=== PATIENT | female | born 1965 | race Hispanic/Latino ===

== ENCOUNTER → 2018-07-13 | Outpatient (CLI) | payer OTHER ==
[~2018-07-13] MED LIST: LISINOPRIL-HCT1 EAC2 PO
--- NOTE | 2018-07-13 09:32 | Diagnostic Imaging Report ---
Left knee MRI without contrast. History: Knee pain. Internal arrangement. Decreased range of motion. Pain worse with walking. Comparison: None. Technique: Multiplanar multi-sequence MRI of the knee without contrast. Findings: Medial compartment: There is a complex tear involving the posterior horn and body segment of the medial meniscus best seen on sagittal image 24. The medial compartmental articular cartilage surfaces are slightly thinned with regions of fraying and fissuring. The medial collateral ligament complex is intact. Lateral compartment: No meniscal tear or cartilage abnormality. The LCL complex is normal. Intercondylar notch: There is a chronic appearing full-thickness anterior cruciate ligament tear. The posterior cruciate ligament is intact. Patellofemoral compartment: No chondromalacia or patellar dislocation. Extensor mechanism: The quadriceps and patellar tendons are normal. Other findings: There is a joint effusion and synovitis. There is no acute fracture, subluxation or avascular necrosis. 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 Joint effusion and synovitis. Signed by: Dr. Ignacio Babcock M.D. on 07/13/2018 9:29 AM
== END ==
LOC: MRI 07:35
PROVIDERS: ATTEND Specialist
DX: M23.92 Unspecified internal derangement of left knee (principal)

== ENCOUNTER → 2018-10-05 | Day surgery (SDC) | payer OTHER ==
[2018-09-28 14:21] LABS: ANION GAP 13.5 mmol/L (8-16); BLOOD UREA NITROGEN 14 mg/dL (7-26); BUN/CREATININE RATIO 17 (6-25); CALCIUM 10.1 mg/dL (8.4-10.2); CARBON DIOXIDE 28 mmol/L (22-29); CHLORIDE 99 mmol/L (98-107); CREATININE, SERUM 0.84 mg/dL (0.57-1.11); EST GLOMERULAR FILTRATION RATE > 60 ML/MIN (60-); GLUCOSE 91 mg/dL (74-118); POTASSIUM 4.5 mmol/L (3.5-5.1); SODIUM 136 mmol/L (136-145)
[~2018-10-05] MED LIST changes: +BACITRACIN 50,000 UNIT VIAL ONE; +CEFAZOLIN SOD 1 GM/NS 50ML 50 ML IV ONE; +DEXAMETHASONE SOD PHOS INJ 4 MG/ML VIAL ONE; +EPHEDRINE SULFATE INJ 50 MG/10 ML SYR ONE; +FENTANYL CITRATE/PF 100MCG/2 ML INJ ONE; +HYDROMORPHONE 2MG/ML 2 MG/ML ML ONE; +KETOROLAC TROMETHAMINE 30 MG/ML VIAL ONE; +LIDOCAINE 2% /EPINEPHRINE 20 ML SDV INJ ONE; +LIDOCAINE HCL 2% LOCAL INJ 5 ML SDV VIAL INJ ONE; +MIDAZOLAM HCL 2 MG/2 ML VIAL ONE; +ONDANSETRON HCL INJ 2MG/ML 2ML 2 MG/ML VIAL ONE; +PROPOFOL IV EMULSION 10 MG/ML 20 ML VIAL ONE; +ROPIVACAINE 0.5% 5 MG/ML 30 ML SDV ONE; +SEVOFLURANE INHAL SOLN 250 ML PEN BTL ONE
--- OUTSIDE RECORDS SUMMARY | 2018-10-05 06:50 | XMS REPORT ---
Author Author [facility] Address Unknown Phone Unavailable Care Team Providers Care Dyer Helper Name Role Phone EDILBERTO MCCORD Unavailable Unavailable Problems This patient has no known problems. Allergies, Adverse Reactions, Alerts This patient has no known allergies or adverse reactions. Medications This patient has no known medications. Results Test Description Test Time Test Comments Text Results Atomic Results Result Comments MRI KNEE LEFT WO 2018-07-13 09:05:00 [place] [address] Patient Name: ROSENDA JIMENEZ MR #: [id number] : 1965 Age/Sex: 52/F Req #: [id number] [facility] Physician: Ordered by: EDILBERTO MCCORD MD Report #: [id number] Location: MRI Room/Bed: Procedure: [id number] MRI/MRI KNEE LEFT WO Exam Date: Exam Time: REPORT STATUS: Signed Left knee MRI without contrast. History: Knee pain. Internal arr angement. Decreased range of motion. Pain worse with walking. Comparison: None. Technique: Multiplanar multi-sequence MRI of the knee without contrast. Findings: Medial compartment: There is a complex tear involving the posterior horn and body segment of the medial meniscus best seen on sagittal image 24. The medial compartmental articular cartilage surfaces are slightly thinned with regions of fraying and fissuring. The medial collateral ligament complex is intact. Lateral compartment: No meniscal tear or cartilage abnormality. The LCL complex is normal. Intercondylar notch: There is a chronic appearing full-thickness anterior cruciate ligament tear. The posterior cruciate ligament is intact. Patellofemoral compartment: No chondromalacia or patellar dislocation. Extensor mechanism: The quadriceps and patellar tendons are normal. Other findings: There is a joint effusion and synovitis. There is no acute fracture, subluxation or avascular necrosis. 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 Joint effusion and synovitis. Signed by: Dr. Ignacio Babcock M.D. on 07/13/2018 9:29 AM Dictated By: IGNACIO BABCOCK MD, MD 8 Transcribed By: SUNSHINE on 07/13/18928 COPY TO: EDILBERTO MCCORD MD
[2018-10-05 11:50] VITALS: BP 135/83
--- NOTE | 2018-10-05 13:08 | Operative Report ---
DATE OF PROCEDURE: October 05, 2018 CLINICAL CASE MANAGER: Ritesh Jay PA-C The patient was brought to the operating room for induction of anesthesia. Throughout this case, my PA's assistance was necessary for retraction of soft tissue and positioning of the extremity. This allows for efficient and technically successful execution of the operation and is considered medically necessary. PREOPERATIVE DIAGNOSIS: Left knee medial meniscal tear and anterior cruciate ligament tear. POSTOPERATIVE DIAGNOSIS: Left knee medial meniscal tear and anterior cruciate ligament tear. PROCEDURE: Left knee arthroscopy, partial medial meniscectomy, anterior cruciate ligament reconstruction. INDICATIONS: The patient is a 53-year-old lady who has clinic exam and MRI findings consistent with a left knee medial meniscal tear and anterior cruciate ligament tear. We have discussed the findings and options, and she would like to have surgical reconstruction and repair. The risks and benefits have been explained. She states she understands and wishes to proceed. DESCRIPTION OF PROCEDURE: The patient was brought to the operating room and placed under general anesthetic. She received prophylactic antibiotics and a regional block in the holding area. Her left lower extremity was prepped and draped in a sterile manner. A preoperative time out was performed. The extremity had been exsanguinated, and a proximal tourniquet was inflated to 300 mmHg. Standard arthroscopy portals were established. The knee was insufflated with sterile saline and systematically inspected. The patellofemoral groove was remarkable. The medial meniscus had a complex tear of the posterior horn of the medial meniscus. The articular surfaces of the medial tibial plateau and medial femoral condyle were well preserved. A partial medial meniscectomy was performed using a combination of biting forceps and a mechanical shaver. [id number] photographs were taken. 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 There was an empty lateral wall sign. The lateral compartment was unremarkable. Notchplasty was performed using a bone-cutting shaver. A tibial guide pin was placed into the footprint of the previous ACL. This was also referenced off of the posterior border of the anterior horn of the lateral meniscus. A tibialis anterior allograft had been sized on the back table at 9.5 mm. A 9 mm reamer was placed over the guide pin. A 5 mm [id number] guide was then used to place a femoral guide pin. This was over-reamed with a 9 mm acorn reamer. Both tunnels were dilated to 10 mm using an impaction dilator. The EndoButton tunnel was noted to be about 43 mm. We elected to use a 20 mm EndoButton. This was attached to the graft, and the graft was passed. The EndoButton was deployed over the anterior femoral cortex. The knee was cycled, and a 10 mm x 25 mm bioabsorbable interference screw was placed into the tibial tunnel. The graft was inspected arthroscopically and noted to be under appropriate tension. The redundancy of the graft was excised. The incisions were all closed with subcuticular Vicryl, Mastisol and Steri-Strips. A sterile bandage and a Stevens brace were applied. Estimated blood loss was minimal. All needle and sponge counts were correct. Job#: [id number] EV
--- NOTE | 2018-10-06 12:01 | NUR ---
PATIENT DME AND HOME HEALTH COMPANIES PRE-ARRANGED BY DR. MCCORD'S OFFICE. PATIENT WITH DME CONTACT INFORMATION. PATIENT AWARE TO CALL CM IF ANY PROBLEMS OCCUR WITHIN 3 DAYS POST- DISCHARGE. PATIENT VERBALLY UNDERSTOOD. THE FOLLOWING DME COMPANY VERIFIED PATIENT IS ON SERVICE WITH THEM: [employer] : (CPM) (P) [phone] (F) [phone] CM SPOKE TO [place] WITH [employer]. PATIENT CPM DELIVERED. PATIENT AWARE.
== END | disposition home or self-care (01) ==
LOC: OR 06:48
PROVIDERS: ATTEND Specialist
DX: S83.232A Complex tear of medial meniscus, current injury, left knee, initial encounter (principal); S83.511A Sprain of anterior cruciate ligament of right knee, initial encounter; I10 Essential (primary) hypertension; R00.1 Bradycardia, unspecified; X58.XXXA Exposure to other specified factors, initial encounter; Z01.810 Encounter for preprocedural cardiovascular examination; Z01.812 Encounter for preprocedural laboratory examination
CPT/HCPCS: 29881; 29888; 36415; 80048; 93005; C1713 ×2; J0690; J1100; J1170; J1885; J2001 ×2; J2250; J2405; J2704; J2795

== ENCOUNTER 2020-01-13 10:06 | Outpatient (RCR) | payer OTHER ==
[~2020-01-13 10:06] MED LIST changes: -BACITRACIN 50,000 UNIT VIAL ONE; -CEFAZOLIN SOD 1 GM/NS 50ML 50 ML IV ONE; -DEXAMETHASONE SOD PHOS INJ 4 MG/ML VIAL ONE; -EPHEDRINE SULFATE INJ 50 MG/10 ML SYR ONE; -FENTANYL CITRATE/PF 100MCG/2 ML INJ ONE; -HYDROMORPHONE 2MG/ML 2 MG/ML ML ONE; -KETOROLAC TROMETHAMINE 30 MG/ML VIAL ONE; -LIDOCAINE 2% /EPINEPHRINE 20 ML SDV INJ ONE; -LIDOCAINE HCL 2% LOCAL INJ 5 ML SDV VIAL INJ ONE; -MIDAZOLAM HCL 2 MG/2 ML VIAL ONE; -ONDANSETRON HCL INJ 2MG/ML 2ML 2 MG/ML VIAL ONE; -PROPOFOL IV EMULSION 10 MG/ML 20 ML VIAL ONE; -ROPIVACAINE 0.5% 5 MG/ML 30 ML SDV ONE; -SEVOFLURANE INHAL SOLN 250 ML PEN BTL ONE
== END 2020-02-05 ==
LOC: OT 10:06
PROVIDERS: ATTEND Specialist
DX: M75.41 Impingement syndrome of right shoulder (principal); M77.11 Lateral epicondylitis, right elbow; M25.511 Pain in right shoulder; M25.521 Pain in right elbow; R53.1 Weakness